=== PATIENT | female | born 1960 | race Caucasian/White ===

== ENCOUNTER → 2016-07-15 | Outpatient (CLI) | payer MEDICARE ==
[~2016-07-15] MED LIST: ACET325S8 PO; ACET500T3 PO; ALMO12.5 PO; ALMO1TAB PO; ALOP5TAB PO; AMBI10TA PO; ATOR20TA15 PO; ATOR20TA42 PO; ATOR40TA16 PO; BISA5TAB64 PO; BUPR150XL PO; BUTA1CAP PO; CALC600T13 PO; CEPH-459 PO; CEPH250 PO; CIPR500T2 PO; CIPR500T4 PO; CLAR10CA3 PO; DEME50TA PO; DEXM10TA PO; DIAZ10TA PO; DICY10 PO; DICY10CA12 PO; ESTR2TAB PO; EXTR500C PO; EXTRTAB5 PO; EYEDRO; FEXO180T PO; FEXO60TA PO; FIORIC PO; FLUO.1%O EACH EYE; FLUO0.1S2 EACH EYE; FOCA10TA PO; IBUP800T23 PO; KETO10 PO; LACTCAP8 PO; LEVS0.123 PO; MACR100C2 PO; METH500T3 PO; MOTR100T PO; MULT-120 PO; PROBCAP28 PO; RANI150T PO; SERT100 PO; VITA200012 PO; ZOLO100T PO; ZOLP10TA3 PO; [UNRECOGNIZED DRUG - OTHER] PO
[2016-07-15 15:04] LABS: BLOOD, URINE MOD (NEG); GLUCOSE,URINE NEG (NEG); KETONE, URINE NEG (NEG); NITRITE,URINE NEG (NEG); PH, URINE 6.5 (5.0-8.5); SQUAMOUS EPITHELIAL CELL URINE <1 /hpf (0-5); URINE COLOR LIGHT-YELLOW (YELLW/STRAW)
[2016-07-15 15:07] LABS: BASOPHIL % 0.3 % (0.0-2.0); EOSINOPHIL % 0.3 % (0.0-4.0); HEMO FLAGS DIFF FINAL; LYMPH % 23.6 % (9.0-44.0); LYMPHOCYTE # 2.4 TH/MM3 (1.0-4.8); MEAN CELL VOLUME 90.6 FL (80.0-100.0); MEAN CORPUSCULAR HEMOGLOBIN 29.6 PG (27.0-34.0); MEAN CORPUSCULAR HGB CONC 32.6 % (32.0-36.0); MONO % 6.1 % (0.0-8.0); NEUT % 69.7 % (16.0-70.0); PLATELET COUNT 416 TH/MM3 (150-450); RED BLOOD COUNT 4.63 MIL/MM3 (4.00-5.30); RED CELL DISTRIBUTION WIDTH 15.5 % (11.6-17.2); WHITE BLOOD COUNT 10.1 TH/MM3 (4.0-11.0)
[2016-07-15 15:21] LABS: ANION GAP 7 MEQ/L (5-15); BICARBONATE 27.6 MEQ/L (21.0-32.0); BLOOD UREA NITROGEN 11 MG/DL (7-18); CHLORIDE 105 MEQ/L (98-107); GLOMERULAR FILTRATION RATE 62 ML/MIN (>89); GLUCOSE,FASTING 83 MG/DL (74-99); SODIUM (NA) 140 MEQ/L (136-145)
[2016-07-15 15:27] LABS: BHCG SCREEN QUALITATIVE LESS THAN 1 MIU/ML (0-5)
--- NOTE | 2016-07-16 10:53 | EKG ---
Date Performed: 07/15/2016 Time Performed: 15:14:41 PTAGE: 56 years EKG: Sinus rhythm POSSIBLE RIGHT VENTRICULAR CONDUCTION DELAY BORDERLINE ECG Compared to prior tracing no significant change PREVIOUS TRACING 02/10/2014 15.51.54 DOCTOR: Nolan Nickerson Interpretating Date/Time 07/16/2016 10:47:59
== END ==
LOC: CPRE 14:16
PROVIDERS: ATTEND Obstetrics & Gynecology
DX: Z01.810 Encounter for preprocedural cardiovascular examination (principal); Z01.812 Encounter for preprocedural laboratory examination; N95.0 Postmenopausal bleeding; R94.31 Abnormal electrocardiogram [ECG] [EKG]
CPT/HCPCS: 36415; 80048; 81001; 84703; 85025; 93005

== ENCOUNTER 2016-07-18 07:01 | Observation (INO) | payer MEDICARE, OTHER ==
--- NOTE | 2016-07-16 07:55 | MH ---
cc: ALEJANDRA JOHNSTON M.D. DATE OF ADMISSION: 07/18/2016 DATE OF 1960 SCHEDULED PROCEDURE Laparoscopic-assisted vaginal hysterectomy with bilateral salpingo-oophorectomy and subsequent revision of abdominoplasty by Dr. Omari Blakely. CHIEF COMPLAINT Postmenopausal bleeding, currently on combined hormone replacement therapy. HISTORY OF PRESENT CONDITION The patient is a 56-year-old white female, para 2, who has been menopausal for several years with very significant symptoms of menopause that we addressed over most of 2015 and earlier in 2014. She was on and off medications and eventually in September she decided to try to start estrogen replacement and she was given a course of unopposed estrogen to take for one month to see if it improved her symptoms and was to return in one month. She did not get back to the office until February and had had some irregular bleeding. At that point she was placed on a combination estrogen and progestin regimen but has not tolerated attempted endometrial biopsy. She was scheduled for a NovaSure/ MyoSure in the office but cancelled after she could not afford the deductible. She later decided that she would do an LAVH/BSO at the time of an abdominoplasty with Dr. Blakely and use a single anesthesia. She is therefore scheduled on for both these procedures. Her others symptoms include depressive disorder, urinary frequency, reduced libido. PAST SURGICAL HISTORY 1. She has a history of insomnia. 2. Irritable bowel syndrome. 3. Migraines. PAST SURGICAL HISTORY 1. Breast implants. 2. A tubal ligation. OB HISTORY Her obstetrical history is significant for two children born by section. They were both full-term. ALLERGIES DILAUDID. MORPHINE. NAPROSYN. VANCOMYCIN. These appear to be more likely intolerances. FAMILY HISTORY Significant for breast cancer in her sister. 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 REVIEW OF SYSTEMS Otherwise unremarkable. PHYSICAL EXAMINATION VITAL SIGNS: Her weight is 128. Her height is 5 feet, 8.25 inches. Her BMI is 23. Her blood pressure is 124/72. GENERAL: On physical exam she is a slim white female. She carries with her at all times a 2-1/2 pound Chihuahua that is designated her therapy dog. NECK: She has no thyroid enlargement. LUNGS: Her lungs are clear to auscultation and percussion. HEART: Rate and rhythm are regular, without murmur, heave or thrills. BREASTS: Without dominant mass, nipple discharge, skin retraction. Implants are stable. ABDOMEN: Benign. She has a well-healed Pfannenstiel incision. PELVIC EXAM: Perineum is estrogenized. Vault is elevated. Cervix is well elevated. Uterus is small, anteverted, mobile, nontender. Both ovaries are palpable, mobile, nontender. EXTREMITIES: Unremarkable. RECTAL: Previous guaiac was negative. IMPRESSION AT THIS TIME Postmenopausal bleeding without any pathologic diagnosis of hyperplasia or cancer in a young woman desirous of definitive therapy at the same time she undergoes an abdominoplasty. The risks, benefits, expectations, alternatives based on pending pathology have all been discussed in detail. She would also like need to do a urethral dilation as in the past that has helped her with some retention, so at this point in time she is scheduled for surgery. She has signed permits and on morning she will undergo LAVH, BSO, urethral dilation and then subsequent abdominoplasty. Alejandra Johnston MD PPC/SSB /7:08 PM /7:40 AM MTDD
[~2016-07-18] VITALS: Ht 158.8 cm; Wt 55.7 kg
[~2016-07-18 07:01] MED LIST changes: -ACET325S8 PO; -ALMO12.5 PO; -ATOR20TA15 PO; -ATOR20TA42 PO; -BISA5TAB64 PO; -BUTA1CAP PO; -CEPH-459 PO; -CEPH250 PO; -CIPR500T2 PO; -CIPR500T4 PO; -DEME50TA PO; -DIAZ10TA PO; -DICY10 PO; -EXTR500C PO; -EXTRTAB5 PO; -EYEDRO; -FEXO60TA PO; -FIORIC PO; -FLUO.1%O EACH EYE; -FLUO0.1S2 EACH EYE; -FOCA10TA PO; -KETO10 PO; -LACTCAP8 PO; -LEVS0.123 PO; -MACR100C2 PO; -MOTR100T PO; -PROBCAP28 PO; -SERT100 PO; -ZOLP10TA3 PO; -[UNRECOGNIZED DRUG - OTHER] PO
[2016-07-18] MEDS ORDERED: DIAZ10TA PO (07:41)
[2016-07-18] MEDS ORDERED: METOPROLOL TARTRATE 25 MG TAB PO PRN (07:45)
[2016-07-18] MEDS: LACTATED RINGER'S 1000 ML IV SCH (07:45)
[2016-07-18] MEDS ORDERED: ceFAZolin 2 GM PREMIX 50 ML IV SCH (07:45)
[2016-07-18] MEDS ORDERED: INSULIN HUMAN REGULAR 1,000 UNITS/10 ML VIAL SQ PRN (07:45)
[2016-07-18] MEDS ORDERED: SODIUM CHLORID 0.9% 500 ML IV SCH (07:45)
[2016-07-18 07:46] VITALS: BP 117/71; PULSE 89; RESP 20; TEMP 97.9; O2SAT 96
[2016-07-18] MEDS ORDERED: METHYLENE BLUE 10 MG/ML VIAL ONE ×2 (09:45→09:48)
[2016-07-18] MEDS ORDERED: ESTROGENS CONJUGATED VAG CREA 15 APPL/30 GM TUBE ONE (09:45)
[2016-07-18] MEDS ORDERED: EPINEPHrine HCL (1:1000) 1 MG/ML VIAL ONE (09:45)
[2016-07-18] MEDS ORDERED: BUPIVACAINE/EPINEPHRINE 0.25% 50 ML VIAL ONE (09:46)
[2016-07-18] MEDS ORDERED: LIDOCAINE HCL 1% 50 ML VIAL ONE (09:46)
[2016-07-18] MEDS ORDERED: FAMOTIDINE 20 MG/2 ML VIAL ONE (09:47)
[2016-07-18] MEDS ORDERED: LIDOCAINE 1%/EPINEPHrine 1:100,000 SOLN 20 ML VIAL ONE ×2 (11:01)
[2016-07-18] MEDS ORDERED: LACTATED RINGER'S 1000 ML INJ 2,000 ML IV ONE (12:00)
[2016-07-18] MEDS ORDERED: KETOROLAC TROMETHAMINE 60 MG/2 ML (IM) VIAL IM ONE (12:00)
[2016-07-18] MEDS ORDERED: PROPOFOL 200 MG/20 ML AMP IV ONE (12:00)
[2016-07-18] MEDS ORDERED: ONDANSETRON HCL 4 MG/2 ML VIAL IV PUSH ONE (12:00)
[2016-07-18] MEDS ORDERED: SUGAMMADEX SODIUM 200 MG/2 ML VIAL IV PUSH ONE ×2 (12:55)
--- NOTE | 2016-07-18 13:57 | PD.OP ---
Operative Report Date of Surgery: Jul 18, 2016 Preoperative Diagnosis: PMB unable to tolerate endometrial biopsy severe symptoms of menopause Postoperative Diagnosis: same Procedure: LAVHBSO enterocele repair incidental cystotomy and repair cystoscopy Surgeon: Lizbet Herrera [employer] Librarian(s): Dr. Linda Geronimo Operation and Findings: Lizbet Edmonds MD Jul 18, 2016 13:56
[2016-07-18] MEDS ORDERED: SODIUM CHLORIDE 0.9% FLUSH 5 ML FLUSH FLUSH PRN (14:00)
[2016-07-18] MEDS ORDERED: NALOXONE HCL 0.4 MG/ML AMP IV PRN (14:00)
[2016-07-18] MEDS ORDERED: LORazepam 0.5 MG TAB PO PRN (14:00)
[2016-07-18] MEDS ORDERED: IBUPROFEN 600 MG TAB PO PRN (14:00)
[2016-07-18] MEDS ORDERED: ZOLPIDEM TARTRATE 5 MG TAB PO PRN (14:00)
[2016-07-18] MEDS ORDERED: oxyCODONE/ACETAMINOPHEN 5 MG/325 MG TAB PO PRN ×2 (14:00)
[2016-07-18] MEDS ORDERED: KETOROLAC TROMETHAMINE 30 MG/ML (IVP) VIAL ONE (14:10)
[2016-07-18] MEDS ORDERED: ACETAMINOPHEN 1000 MG/100 ML VIAL IV ONE (14:10)
[2016-07-18] MEDS: ACETAMINOPHEN 1000 MG/100 ML VIAL IV PRN (14:12)
[2016-07-18] MEDS: KETOROLAC TROMETHAMINE 30 MG/ML (IVP) VIAL IV PUSH PRN (14:15)
[2016-07-18] MEDS ORDERED: fentaNYL CITRATE 250 MCG/5 ML AMP ONE ×2 (14:16→14:17)
[2016-07-18] MEDS ORDERED: *MEPERIDINE 25 MG INJ VIAL PERIprocedural Use ONLY ONE (14:21)
[2016-07-18] MEDS ORDERED: *ONDANSETRON 4 MG VIAL PERIprocedural Use ONLY ONE (14:27)
[2016-07-18] MEDS ORDERED: LORazepam 2 MG/ML VIAL ONE (14:29)
[2016-07-18] MEDS: LACTATED RINGER'S 1000 ML INJ 1,000 ML IV SCH ×2 (14:41→21:48)
[2016-07-18 14:45] VITALS: BP 115/72; PULSE 84; RESP 16; O2SAT 100
[2016-07-18] MEDS ORDERED: DO NOT ADM ANY ANTICOAGULANT DRUGS XX PRN (15:00)
[2016-07-18] MEDS ORDERED: ESTRADIOL 0.1 MG/24 HR PATCH TD ONE (15:00)
[2016-07-18] MEDS ORDERED: LORazepam 1 MG TAB PO PRN (15:45)
[2016-07-18] MEDS ORDERED: LORazepam 2 MG/ML VIAL IV PUSH PRN (15:45)
[2016-07-18] MEDS ORDERED: PHENAZOPYRIDINE HCL 200 MG TAB PO ONE (15:45)
[2016-07-18] MEDS: ONDANSETRON HCL 4 MG/2 ML VIAL IVP PRN (18:45)
[2016-07-18 20:00] VITALS: BP_SYST 114; BP_SYST 119; BP_DIAS 56; BP_DIAS 58; PULSE 86; PULSE 89; RESP 17; TEMP 97.8; TEMP 97.9; O2SAT 96; O2SAT 99
[2016-07-18] MEDS: SODIUM CHLORIDE 0.9% FLUSH 5 ML FLUSH FLUSH SCH (20:16)
[2016-07-18] MEDS: MEPERIDINE HCL 50 MG/ML VIAL IV PRN (21:53)
--- NOTE | 2016-07-18 22:40 | HHI.PR ---
Subjective Remarks Night of surgery Doing well, pain is well controlled, eating well. doesn't want oral pain meds--dilaudid if needed some nausea with oral meds Objective Vital Signs Vital Signs Date Time Temp Pulse Resp B/P Pulse Ox O2 Delivery O2 Flow Rate FiO2 07/18/16 20:30 19 07/18/16 20:00 97.9 89 17 119/56 99 07/18/16 16:30 97.5 90 14 117/66 99 Nasal Cannula 2 07/18/16 16:00 90 14 119/56 99 Nasal Cannula 2 07/18/16 15:00 98 14 111/53 99 Nasal Cannula 2 07/18/16 14:45 91 14 119/55 98 Nasal Cannula 2 07/18/16 14:45 84 16 115/72 100 07/18/16 14:30 88 14 120/68 95 Nasal Cannula 2 07/18/16 14:15 90 14 96/60 96 Nasal Cannula 2 07/18/16 14:00 94 14 125/64 92 Nasal Cannula 2 07/18/16 13:59 97.7 89 14 127/64 92 Room Air 07/18/16 07:46 97.9 89 20 117/71 96 I/O 07/17/16 07/17/16 07/17/16 07/18/16 07/18/16 07/18/16 07:00 15:00 23:00 07:00 15:00 23:00 Intake Total 2300 ml 1408 ml Output Total 1150 ml 350 ml Balance 1150 ml 1058 ml Intake Oral 75 ml IV Total 1333 ml Other 2300 ml Output Urine Total 850 ml 350 ml Estimated Blood Loss 300 ml Objective Remarks Chest is clear, regular rate and rhythm. Abdomen is soft and non-distended. Incisions clean and dry. perineum dry urine in byrd copious and blue Ext no CCE. A/P Assessment and Plan Post Op Day 1 stable night of surgery reviewed small cystotomy and repair need to wear catheter for 7 days reviewed that abdomenoplasty revision did not occur reviewed need for antibiotics while catheter in place. Lizbet Herrera MD Jul 18, 2016 22:40
--- NOTE | 2016-07-18 22:44 | HHI.DCPOC ---
Discharge Care Plan Report Symptoms to Your Doctor -Temperate above 100.5 degrees -Redness, of incision or excessive or foul smelling drainage -Unusual pain or calf pain -Increased vaginal bleeding -Painful or difficulty urinating -Feelings of extreme sadness or anxiety after 2 weeks Goals to Promote Your Health * To prevent worsening of your condition and complications * To maintain your health at the optimal level Directions to Meet Your Goals Take your medications as prescribed Follow your dietary instruction Follow activity as directed Ensure plenty of rest for recovery Drink fluids for hydration Keep your appointments as scheduled Take your immunizations and boosters as scheduled If your symptoms worsen call your PCP, if no PCP go to Urgent Care Center or Emergency Room Smoking is Dangerous to Your Health. Avoid second hand smoke Call the 24-hour crisis hotline for domestic abuse at Lizbet Herrera MD Jul 18, 2016 22:44
[2016-07-18] MEDS ORDERED: HYDROmorphone HCL PF 1 MG/ML VIAL IV PUSH PRN (22:45)
[2016-07-19] VITALS: BP 114/58; PULSE 86; RESP 17; TEMP 97.8; O2SAT 96
[2016-07-19] MEDS: ONDANSETRON HCL 4 MG/2 ML VIAL IVP PRN ×2 (00:40→06:35)
[2016-07-19] MEDS: KETOROLAC TROMETHAMINE 30 MG/ML (IVP) VIAL IV PUSH PRN ×2 (01:09→16:55)
[2016-07-19] MEDS: MEPERIDINE HCL 50 MG/ML VIAL IV PRN (03:38)
[2016-07-19 06:00] VITALS: BP 96/50; PULSE 79; RESP 17; TEMP 97.8; O2SAT 99
[2016-07-19] MEDS: LACTATED RINGER'S 1000 ML INJ 1,000 ML IV SCH (06:38)
[2016-07-19] MEDS: ACETAMINOPHEN 1000 MG/100 ML VIAL IV PRN (06:52)
[2016-07-19 07:06] LABS: AUTOMATED NEUTROPHIL # 7.5 TH/MM3 (1.8-7.7); BASOPHIL % 0.2 % (0.0-2.0); EOSINOPHIL % 0.1 % (0.0-4.0); HEMATOCRIT 31.8 % (35.0-46.0); HEMO FLAGS DIFF FINAL; LYMPH % 18.6 % (9.0-44.0); LYMPHOCYTE # 1.9 TH/MM3 (1.0-4.8); MEAN CELL VOLUME 90.9 FL (80.0-100.0); MEAN CORPUSCULAR HEMOGLOBIN 30.5 PG (27.0-34.0); MEAN CORPUSCULAR HGB CONC 33.5 % (32.0-36.0); MONO % 8.1 % (0.0-8.0); PLATELET COUNT 292 TH/MM3 (150-450); RED BLOOD COUNT 3.49 MIL/MM3 (4.00-5.30); RED CELL DISTRIBUTION WIDTH 15.1 % (11.6-17.2); WHITE BLOOD COUNT 10.2 TH/MM3 (4.0-11.0)
[2016-07-19 07:33] LABS: BICARBONATE 26.7 MEQ/L (21.0-32.0); POTASSIUM 3.7 MEQ/L (3.5-5.1)
[2016-07-19] MEDS: LACTATED RINGER'S 1000 ML IV SCH (07:45)
[2016-07-19 08:00] VITALS: BP 102/52; PULSE 71; RESP 16; TEMP 96.7; O2SAT 97
[2016-07-19] MEDS: NITROFURANTOIN MONOHYD MACROCR 100 MG CAP PO SCH ×2 (09:00→17:46)
[2016-07-19] MEDS: SODIUM CHLORIDE 0.9% FLUSH 5 ML FLUSH FLUSH SCH ×2 (09:00→21:00)
--- NOTE | 2016-07-19 09:42 | HHI.PR ---
Subjective Remarks Doing well calm and comfortable appearing. States lower abdomenal pain significant which is likely due to the difficulty with the vaginal portion of the case. still has nausea. otherwise doing well. Objective Vital Signs Vital Signs Date Time Temp Pulse Resp B/P Pulse Ox O2 Delivery O2 Flow Rate FiO2 07/19/16 06:00 97.8 79 17 96/50 99 07/19/16 03:10 19 07/19/16 00:00 97.8 86 17 114/58 96 07/18/16 23:00 20 07/18/16 20:30 19 07/18/16 20:00 97.9 89 17 119/56 99 07/18/16 16:30 97.5 90 14 117/66 99 Nasal Cannula 2 07/18/16 16:00 90 14 119/56 99 Nasal Cannula 2 07/18/16 15:00 98 14 111/53 99 Nasal Cannula 2 07/18/16 14:45 91 14 119/55 98 Nasal Cannula 2 07/18/16 14:45 84 16 115/72 100 07/18/16 14:30 88 14 120/68 95 Nasal Cannula 2 07/18/16 14:15 90 14 96/60 96 Nasal Cannula 2 07/18/16 14:00 94 14 125/64 92 Nasal Cannula 2 07/18/16 13:59 97.7 89 14 127/64 92 Room Air I/O 07/18/16 07/18/16 07/18/16 07/19/16 07/19/16 07/19/16 07:00 15:00 23:00 07:00 15:00 23:00 Intake Total 2300 ml 1888 ml 720 ml 700 ml Output Total 1150 ml 950 ml 1000 ml Balance 1150 ml 938 ml -280 ml 700 ml Intake Oral 555 ml 720 ml IV Total 1333 ml 700 ml Other 2300 ml Output Urine Total 850 ml 950 ml 1000 ml Estimated Blood Loss 300 ml # Bowel Movements 0 0 Result Diagram: 07/19/16 0610 07/19/16 0610 Objective Remarks Chest is clear, regular rate and rhythm. Abdomen is soft and non-distended. Incisions clean and dry. perineum dry urine in byrd copious and orange (pyridium) Ext no CCE. A/P Assessment and Plan Post Op Day 1 stable night of surgery reviewed small cystotomy and repair need to wear catheter for 7 days reviewed that abdomenoplasty revision did not occur reviewed need for antibiotics while catheter in place. will send home with po demerol and macrobid. will assess in pm to see if home today or tomorrow will notify Duncan Nunez of status Sharon,Lizbet Mills MD Jul 19, 2016 09:42
[2016-07-19] MEDS ORDERED: DEME50TA PO (09:48)
[2016-07-19] MEDS ORDERED: MACR100C2 PO (09:49)
--- NOTE | 2016-07-19 09:50 | HHI.DCPOC ---
Discharge Care Plan Report Symptoms to Your Doctor -Temperate above 100.5 degrees -Redness, of incision or excessive or foul smelling drainage -Unusual pain or calf pain -Increased vaginal bleeding -Painful or difficulty urinating -Feelings of extreme sadness or anxiety after 2 weeks Goals to Promote Your Health * To prevent worsening of your condition and complications * To maintain your health at the optimal level Directions to Meet Your Goals Take your medications as prescribed Follow your dietary instruction Follow activity as directed Ensure plenty of rest for recovery Drink fluids for hydration Keep your appointments as scheduled Take your immunizations and boosters as scheduled If your symptoms worsen call your PCP, if no PCP go to Urgent Care Center or Emergency Room Smoking is Dangerous to Your Health. Avoid second hand smoke Call the 24-hour crisis hotline for domestic abuse at Lizbet Herrera MD Jul 19, 2016 09:50
[2016-07-19] MEDS: PROMETHAZINE HCL 25 MG TAB PO PRN ×2 (09:52→16:56)
[2016-07-19] MEDS: MEPERIDINE HCL 50 MG TAB PO PRN ×2 (10:36→21:04)
[2016-07-19 12:00] VITALS: BP 98/69; PULSE 80; RESP 16; TEMP 96.4; O2SAT 93
[2016-07-19 16:00] VITALS: BP 89/57; PULSE 80; RESP 16; TEMP 96.6; O2SAT 94
[2016-07-19] MEDS ORDERED: ONDANSETRON ODT 4 MG TAB PO PRN (17:30)
[2016-07-19 20:00] VITALS: BP 90/46; PULSE 83; RESP 16; TEMP 97.7; O2SAT 96
[2016-07-20] VITALS: BP 92/45; PULSE 95; RESP 16; TEMP 97.4; O2SAT 95
[2016-07-20] MEDS: KETOROLAC TROMETHAMINE 30 MG/ML (IVP) VIAL IV PUSH PRN (02:32)
[2016-07-20 08:00] VITALS: BP 133/64; PULSE 86; RESP 18; TEMP 96.6; O2SAT 94
--- NOTE | 2016-07-20 08:44 | HHI.PR ---
Subjective Remarks Doing well, pain is well controlled, eating well. Stayed overnight due to nausea and pain Objective Vital Signs Vital Signs Date Time Temp Pulse Resp B/P Pulse Ox O2 Delivery O2 Flow Rate FiO2 07/20/16 04:35 20 07/20/16 00:00 97.4 95 16 92/45 95 07/19/16 22:19 19 07/19/16 20:00 97.7 83 16 90/46 96 07/19/16 19:12 07/19/16 16:00 96.6 80 16 89/57 94 07/19/16 14:25 07/19/16 12:00 96.4 80 16 98/69 93 I/O 07/19/16 07/19/16 07/19/16 07/20/16 07/20/16 07/20/16 07:00 15:00 23:00 07:00 15:00 23:00 Intake Total 720 ml 1100 ml 1440 ml Output Total 1000 ml 1950 ml Balance -280 ml 1100 ml -510 ml Intake Oral 720 ml 400 ml 1440 ml IV Total 700 ml Output Urine Total 1000 ml 1950 ml # Bowel Movements 0 # Sanitary Pads 1 Pads Result Diagram: 07/19/16 0610 07/19/16 0610 Objective Remarks Chest is clear, regular rate and rhythm. Abdomen is soft and non-distended. Incisions clean and dry. perineum dry urine in byrd Ext no CCE. A/P Assessment and Plan Post Op Day 2 [facility] [employer] [facility] bso, reviewed small cystotomy and repair need to wear catheter for 7 days reviewed that abdominoplasty revision did not occur reviewed need for antibiotics while catheter in place. Nurse will educate on byrd use/leg bag prior to d/c. Rx for po demerol and macrobid. Sarai Geronimo MD Jul 20, 2016 08:44
[2016-07-20] MEDS: SODIUM CHLORIDE 0.9% FLUSH 5 ML FLUSH FLUSH SCH (09:00)
[2016-07-20] MEDS: NITROFURANTOIN MONOHYD MACROCR 100 MG CAP PO SCH (09:39)
[2016-07-20 12:00] VITALS: BP 149/61; PULSE 76; RESP 20; TEMP 98.2; O2SAT 97
--- NOTE | 2016-07-24 08:21 | MP ---
cc: LIZBET JOHNSTON DATE OF SURGERY: 07/18/2016 PREOPERATIVE DIAGNOSIS Postmenopausal bleeding intolerance of endometrial biopsy in the office, declines subtotally procedure. POSTOPERATIVE DIAGNOSIS Postmenopausal bleeding intolerance of endometrial biopsy in the office, declines subtotally procedure. PROCEDURE Laparoscopic-assisted vaginal hysterectomy and bilateral salpingo-oophorectomy and incidental cystotomy and repair vaginally, enterocele repair vaginally, laparoscopic lysis of adhesions. SURGEON Dr. Johnston. GENERAL PRODUCTION MANAGER Linda Geronimo MD FINDINGS Examination under anesthesia revealed a very flat belly. She was planning on having a subsequent abdominoplasty but she had very little redundant tissue. Examination under anesthesia revealed a very deep vaginal vault with a cervix that was well elevated. The uterus was difficult to palpate due to her abdominoplasty Before. Upon entering the peritoneal cavity the liver edge and gallbladder were unremarkable. The uterus was minimally enlarged. The tubes were scarred to the sidewall from her prior tubal ligation. The ovaries looked unremarkable. The laparoscopic portion of the procedure proceeded unremarkably, from below, she had extremely strong uterosacral ligaments, very woody attachments of the cervix and lower uterine segment to the pelvic structures. A small cystotomy was made when attempting to dissect the bladder off the lower uterine segment. This was repaired and the procedure completed. The procedure was difficult due to the woodiness of the structures and lack of visibility to the depth of the vaginal vault but bleeding was average. Once a laparoscopic hysterectomy was performed repeat evaluation from above showed no bleeding. The cystotomy repair was watertight with 200 ccs of saline instilled. Then a cystoscopy was performed to look for flow from both ureteral orifices. The bladder repair was watertight and away from both ureteral orifices. The trigone was intact. A 1/2 hour of waiting for methylene blue revealed no methylene blue, although there was peristalsing from the urethral orifices and some flow of urine. Repeat evaluation laparoscopically showed an absence of urine in the abdomen. The bladder was distended to at least 300 ccs and intact. At this point methylene blue was seen in the Fam and there was peristalsing of both ureters seen from above. The pneumoperitoneum was released and the incisions closed and Premarin cream was placed in the dry vaginal vault. ESTIMATED BLOOD LOSS Estimated blood loss was 200 ccs. COUNTS Sponge, instrument, needle count were correct. CONDITION She tolerated the procedure well and went to the recovery room in stable condition. Dr. Blakely deferred on the abdominoplasty, feeling that we had extended the time in the operating room and the risk of DVT or PE with abdominoplasty was significant. He also felt the need for it was minimal and that she already had a good cosmetic result from her prior procedure. So for the better part of safety it was deferred. She went to the recovery room in stable condition. PROCEDURE The patient was identified as Apoorva Nunez in the holding. We reviewed in detail her planned procedure and what to expect. She was taken to the operating room. She was given antibiotics IV. A time-out was performed after she was prepped and draped in the usual sterile fashion. Pelvic exam was performed. The Fam catheter was placed, a single-tooth tenaculum and acorn were placed. Attention was directed to the abdomen. A 5 mm incision was made in the umbilicus and a trocar and sleeve placed under direct visualization to reveal no iatrogenic injury. Pneumoperitoneum was created and another 5 mm trocar and sleeve were placed in the previous abdominoplasty scar. Systematic evaluation of the abdominal and pelvic contents was performed and then the tubes were dissected off the sidewalls where they had been stuck with the Hulka clips and a few other adhesions were lysed. The round ligament was transected and the anterior leaf of the broad ligament taken off the lower uterine segment. Then the tube and ovary on the right side were gently placed on medial traction and the infundibulopelvic ligament transected and successive pedicles were taken down to the lower uterine segment. This was repeated on the left without difficulty. Once near the uterosacrals were reached attention was directed to the vagina. Leeton tenaculum was removed, the cervix was circumcised with the Bovie on cutting after being instilled with Marcaine. The posterior cul-de-sac was entered easily, although the vaginal vault was extremely narrow, extremely deep and it was difficult to find any type of retractors that would allow visualization and manipulation. The anterior cul-de-sac was attempted to be entered and it was apparent that there was a 1 inch cystotomy into the bladder. The edges of this were clean as has been done with scissors and it was closed with 2-0 and 0-Chromic in multiple layers in interrupted. Then the uterosacrals on either side were clamped, cut, suture ligated and two more pedicles were taken on either side and this allowed the surgeon's finger to go from the posterior cul-de-sac around and to the lower cervix anteriorly, identify a safe space which was entered and then the retractors placed in the anterior cul-de-sac protecting the bladder and the cystotomy repair. Successive pedicles were then clamped, cut and suture ligated and the uterus was removed from the field. A Moschcowitz repair was done using Vicryl to close the enterocele and then the uterosacrals were plicated and the vagina was closed in a running interlocking fashion. There was no bleeding. Then the scope was used to evaluate the abdominal cavity. The bladder was filled to 200 ccs with no evidence of any leakage, the suture was visible and evaluated. Hans was placed. All pedicles were noted to be hemostatic and then the pneumoperitoneum were released. Attention was then directed back to the bladder. The urethra was dilated. The scope was then placed into the bladder. The area of the small cystotomy was distant from both ureteral orifices and the trigone and it was watertight. Methylene blue was then instilled intravenously and over 30 minutes while we saw flow of urine from both ureteral orifices, there was no methylene blue. The Fam catheter was replaced and attention was directed to the abdomen. Careful evaluation of the abdomen revealed no methylene blue, no leakage from the bladder, all pedicles reassuring and peristalsis from both ureters and the sidewall. By the time this completed there was methylene blue in the Fam catheter. The incisions were therefore closed after the pneumoperitoneum was released and Fam catheter was left. Her urethra is not dilated, she has a Fam catheter in place which will be left in for 10 days. Estimated blood loss was 200 ccs. Sponge, instrument, needle count were correct. She tolerated the procedure well and she went to the recovery room in stable condition. Lizbet Johnston MD PPC/TLL /2:00 PM /7:52 AM
== END 2016-07-20 15:24 | disposition home or self-care (01) ==
LOC: HSDC 07:01 → HSDI 13:54 → HOCA 16:38 → UNDODISOB 07-20 15:24
PROVIDERS: ADMIT Obstetrics & Gynecology; ATTEND Obstetrics & Gynecology
DX: N95.0 Postmenopausal bleeding (principal); N81.5 Vaginal enterocele; N80.0 Endometriosis of uterus; N84.0 Polyp of corpus uteri; N83.202 Unspecified ovarian cyst, left side; N83.201 Unspecified ovarian cyst, right side; N83.8 Other noninflammatory disorders of ovary, fallopian tube and broad ligament; N88.8 Other specified noninflammatory disorders of cervix uteri; K58.9 Irritable bowel syndrome, unspecified; E78.5 Hyperlipidemia, unspecified; Z98.51 Tubal ligation status; Z98.82 Breast implant status; Z79.890 Hormone replacement therapy
CPT/HCPCS: 00840; 58552; 80048; 85025; 86850; 86900; 86901; 88307; 94150; G0378; J0131; J0690; J1885; J2060; J2175; J2405; J3010; J7120; Q0169; J0171